=== PATIENT | male | born 1950 ===

== ENCOUNTER 2021-09-07 15:46 | Emergency (ER) | payer OTHER ==
[2021-09-07 16:37] LABS: BASOPHIL 0.9 % (0-2); EOSINOPHIL 2.7 % (0-7); HCT 46.7 % (42.0-52.0); HGB 14.7 g/dl (13.2-18.0); LYMPHOCYTE 21.5 % (15-48); MCH 27.4 pg (25.0-31.0); MCHC 31.5 g/dL (32.0-36.0); MCV 87.1 fL (78.0-100.0); MONOCYTE 7.2 % (0-12); MPV 10.3 fL (6.0-9.5); NEUTROPHIL 66.5 % (41-80); NRBC 0; PLT 217 K/uL (150-400); RBC 5.36 M/uL (4.70-6.00); RDW 14.2 % (11.5-14.0); WBC 11.2 K/uL (4.0-10.5)
[2021-09-07 18:19] LABS: CREATININE 1.03 mg/dL (0.67-1.17); POTASSIUM 5.2 mmol/L (3.5-5.1)
== END 2021-09-07 19:50 | disposition home or self-care (01) ==
LOC: FER 15:46
PROVIDERS: Emergency Medicine
DX: R19.7 Diarrhea, unspecified (principal); E87.6 Hypokalemia; I10 Essential (primary) hypertension; E11.9 Type 2 diabetes mellitus without complications; Z79.84 Long term (current) use of oral hypoglycemic drugs
CPT/HCPCS: 36415; 74022; 80048; 85025

== ENCOUNTER 2021-10-05 09:28 | Inpatient (IN) | payer OTHER ==
[~2021-10-05] VITALS: Ht 182.9 cm; Wt 89.0 kg
[2021-10-05 11:03] LABS: CORONAVIRUS 2019 SARS-COV-2 NEGATIVE (NEGATIVE); INFLUENZA A NAA NEGATIVE (NEGATIVE)
[2021-10-05 11:23] LABS: BASOPHIL 0.3 % (0-2); EOSINOPHIL 0 % (0-7); HCT 47.7 % (42.0-52.0); HGB 15.3 g/dl (13.2-18.0); LYMPHOCYTE 8.8 % (15-48); MCH 27.5 pg (25.0-31.0); MCHC 32.1 g/dL (32.0-36.0); MCV 85.8 fL (78.0-100.0); MONOCYTE 8.1 % (0-12); NEUTROPHIL 81.8 % (41-80); NRBC 0; PLT 159 K/uL (150-400); RBC 5.56 M/uL (4.70-6.00); RDW 14.4 % (11.5-14.0)
[2021-10-05 11:39] LABS: ALBUMIN 3.7 g/dL (3.4-5.0); BILIRUBIN - TOTAL 1.3 mg/dL (0.2-1.0); BUN/CREAT RATIO (CALC) 16.2 RATIO; CREATININE 0.99 mg/dL (0.67-1.17); GLOBULIN (CALCULATION) 4.7 g/dL; POTASSIUM 4.9 mmol/L (3.5-5.1); TOTAL PROTEIN 8.4 g/dL (6.4-8.2)
[2021-10-05 12:08] LABS: BILIRUBIN NEGATIVE (NEGATIVE); BLOOD TRACE-INTACT Ery/uL (NEGATIVE); CLARITY CLEAR (CLEAR); COLOR YELLOW (YELLOW); GLUCOSE (U) 1+ mg/dL (NORMAL); LEUKOCYTES TRACE Leu/uL (NEGATIVE); NITRITE POSITIVE (NEGATIVE); PROTEIN 2+ mg/dL (NEGATIVE); pH 7.5 (5.0-9.0)
[2021-10-05 12:16] LABS: BACTERIA 4+
[2021-10-05 12:22] LABS: LACTIC ACID 2.3 mmol/L (0.4-1.9)
[2021-10-05] MEDS ORDERED: ELIQUIS5 MG PO (19:33)
[2021-10-05] MEDS ORDERED: PROTONIX 40MG T40 MG PO (19:33)
[2021-10-05] MEDS ORDERED: METFORMIN HCL500 MG PO (19:34)
[2021-10-05] MEDS ORDERED: ASCORBIC ACID500 MG PO (19:34)
[2021-10-05] MEDS ORDERED: PRINIVIL20 MG PO (19:35)
[2021-10-05] MEDS ORDERED: LIPITOR20 MG PO (19:35)
[2021-10-05] MEDS ORDERED: FEOSOL325 MG PO (19:36)
[2021-10-05] MEDS ORDERED: LOPRESSOR50 MG PO (19:36)
[2021-10-06 06:50] LABS: BASOPHIL 0.2 % (0-2); EOSINOPHIL 0.3 % (0-7); HCT 43.3 % (42.0-52.0); HGB 13.8 g/dl (13.2-18.0); MCH 27.5 pg (25.0-31.0); MCHC 31.9 g/dL (32.0-36.0); MCV 86.4 fL (78.0-100.0); MONOCYTE 8.2 % (0-12); MPV 10.5 fL (6.0-9.5); NRBC 0; PLT 133 K/uL (150-400); RBC 5.01 M/uL (4.70-6.00); RDW 14.5 % (11.5-14.0)
[2021-10-06 07:29] LABS: BUN/CREAT RATIO (CALC) 13.2 RATIO; CREATININE 0.91 mg/dL (0.67-1.17); POTASSIUM 4.2 mmol/L (3.5-5.1)
[2021-10-07 06:35] LABS: BASOPHIL 0.2 % (0-2); EOSINOPHIL 0.9 % (0-7); HCT 41.6 % (42.0-52.0); HGB 13.1 g/dl (13.2-18.0); LYMPHOCYTE 11.4 % (15-48); MCH 27.3 pg (25.0-31.0); MCHC 31.5 g/dL (32.0-36.0); MCV 86.8 fL (78.0-100.0); MONOCYTE 5.8 % (0-12); MPV 10.1 fL (6.0-9.5); NEUTROPHIL 80.8 % (41-80); NRBC 0; PLT 138 K/uL (150-400); RBC 4.79 M/uL (4.70-6.00); RDW 14.6 % (11.5-14.0)
[2021-10-07] MEDS ORDERED: BACTRIM DS TAB1 EACH PO (13:36)
[2021-10-07] MEDS ORDERED: FLORANEX TABLE1 EACH PO (13:36)
== END 2021-10-07 16:31 | DRG 871 ==
LOC: FER 09:28 → FMS 12:29
PROVIDERS: Emergency Medicine; ADMIT Allergy & Immunology Allergy
DX: A41.51 Sepsis due to Escherichia coli [E. coli] (principal); G93.41 Metabolic encephalopathy; N30.00 Acute cystitis without hematuria; I48.20 Chronic atrial fibrillation, unspecified; R65.20 Severe sepsis without septic shock; E11.9 Type 2 diabetes mellitus without complications; I10 Essential (primary) hypertension; Z20.822 Contact with and (suspected) exposure to COVID-19; E78.5 Hyperlipidemia, unspecified; I25.10 Atherosclerotic heart disease of native coronary artery without angina pectoris; I45.10 Unspecified right bundle-branch block; F32.A Depression, unspecified; F41.9 Anxiety disorder, unspecified; G40.909 Epilepsy, unspecified, not intractable, without status epilepticus; Z86.73 Personal history of transient ischemic attack (TIA), and cerebral infarction without residual deficits; Z79.01 Long term (current) use of anticoagulants; Z90.49 Acquired absence of other specified parts of digestive tract; Z98.890 Other specified postprocedural states; Z79.899 Other long term (current) drug therapy
CPT/HCPCS: 36415; 71045; 80048; 80053; 81001; 83605; 84145; 85025; 87040; 87076; 87088; 87186; 93005; 97162; 97530; 97530-GP; 97535; J0696; J7040; J7120; U0002

== ENCOUNTER 2021-11-01 11:08 | Day surgery (SDCO) | payer MEDICARE ==
[~2021-11-01] VITALS: Ht 182.9 cm; Wt 90.9 kg
[~2021-11-01 11:08] MED LIST: ASCORBIC ACID500 MG PO; BACTRIM DS TAB1 EACH PO; ELIQUIS5 MG PO; FEOSOL325 MG PO; FLORANEX TABLE1 EACH PO; LIPITOR20 MG PO; LOPRESSOR50 MG PO; METFORMIN HCL500 MG PO; PRINIVIL20 MG PO; PROTONIX 40MG T40 MG PO
[2021-11-01 12:39] LABS: BILIRUBIN NEGATIVE (NEGATIVE); BLOOD 3+ Ery/uL (NEGATIVE); GLUCOSE (U) 3+ mg/dL (NORMAL); LEUKOCYTES 1+ Leu/uL (NEGATIVE); NITRITE POSITIVE (NEGATIVE); PROTEIN 2+ mg/dL (NEGATIVE); SPECIFIC GRAVITY 1.025 (1.001-1.030); pH 5.5 (5.0-9.0)
[2021-11-01 12:51] LABS: CLARITY HAZY (CLEAR); COLOR RED (YELLOW)
[2021-11-01 12:52] LABS: URINARY RBC TNTC
[2021-11-01 12:52] LABS: BASOPHIL 0.5 % (0-2); EOSINOPHIL 1.4 % (0-7); HCT 40.8 % (42.0-52.0); HGB 12.9 g/dl (13.2-18.0); MCH 27.9 pg (25.0-31.0); MCHC 31.6 g/dL (32.0-36.0); MCV 88.3 fL (78.0-100.0); MONOCYTE 8.3 % (0-12); MPV 9.6 fL (6.0-9.5); NEUTROPHIL 73.2 % (41-80); NRBC 0; PLT 143 K/uL (150-400); RBC 4.62 M/uL (4.70-6.00); RDW 14.1 % (11.5-14.0); WBC 9.6 K/uL (4.0-10.5)
[2021-11-01 13:02] LABS: INR 1.15 (0.9-1.2); PROTHROMBIN TIME 14.1 SECONDS (11.8-13.4); PTT 30.6 SECONDS (24.4-34.7)
[2021-11-01 13:11] LABS: ALBUMIN 2.9 g/dL (3.4-5.0); BILIRUBIN - TOTAL 0.3 mg/dL (0.2-1.0); BUN/CREAT RATIO (CALC) 11.9 RATIO; CREATININE 1.09 mg/dL (0.67-1.17); POTASSIUM 4.5 mmol/L (3.5-5.1); TOTAL PROTEIN 6.9 g/dL (6.4-8.2)
[2021-11-01] MEDS ORDERED: GLUCOTROL5 MG PO (18:19)
[2021-11-01] MEDS ORDERED: KEPPRA XR500 MG PO (18:24)
[2021-11-01] MEDS ORDERED: ATIVAN0.5 M1 PO (18:25)
[2021-11-01] MEDS ORDERED: SEROQUEL 25MG T25 MG PO (18:25)
[2021-11-02 06:17] LABS: BASOPHIL 0.7 % (0-2); EOSINOPHIL 1.9 % (0-7); HCT 39.5 % (42.0-52.0); HGB 12.4 g/dl (13.2-18.0); LYMPHOCYTE 19.6 % (15-48); MCH 27.6 pg (25.0-31.0); MCHC 31.4 g/dL (32.0-36.0); MONOCYTE 9.3 % (0-12); MPV 9.9 fL (6.0-9.5); NEUTROPHIL 67.6 % (41-80); NRBC 0; PLT 155 K/uL (150-400); RBC 4.49 M/uL (4.70-6.00); RDW 13.9 % (11.5-14.0); WBC 8.5 K/uL (4.0-10.5)
[2021-11-02 07:01] LABS: BUN/CREAT RATIO (CALC) 13.1 RATIO; CREATININE 0.99 mg/dL (0.67-1.17); MAGNESIUM 1.4 mg/dL (1.8-2.4); POTASSIUM 4.4 mmol/L (3.5-5.1)
--- NOTE | 2021-11-03 13:53 | NUR ---
11/03 Mr. Lopez resides at [facility]. They will be accepting him back per Zak Villarreal. [facility] is current as PCP. He has a rollator. Mr. Villarreal reports plans to make a referral to [facility] when patient returns. Mr. Villarreal reports patient to be able to negotiate [facility] and therefore, doesn't belive a referral is needed to [facility].
[2021-11-03 17:14] LABS: BILIRUBIN NEGATIVE (NEGATIVE); BLOOD TRACE-INTACT Ery/uL (NEGATIVE); CLARITY CLEAR (CLEAR); COLOR YELLOW (YELLOW); GLUCOSE (U) NORMAL (NORMAL); LEUKOCYTES TRACE Leu/uL (NEGATIVE); NITRITE NEGATIVE (NEGATIVE); PROTEIN 1+ mg/dL (NEGATIVE); SPECIFIC GRAVITY 1.025 (1.001-1.030)
[2021-11-03 17:23] LABS: BACTERIA TRACE
[2021-11-04 06:25] LABS: BASOPHIL 0.8 % (0-2); HGB 12.7 g/dl (13.2-18.0); LYMPHOCYTE 26.1 % (15-48); MCH 27.5 pg (25.0-31.0); MCV 88.9 fL (78.0-100.0); MONOCYTE 13.2 % (0-12); MPV 10.2 fL (6.0-9.5); NEUTROPHIL 55.8 % (41-80); NRBC 0; PLT 158 K/uL (150-400); RBC 4.61 M/uL (4.70-6.00); RDW 14.2 % (11.5-14.0); WBC 8.3 K/uL (4.0-10.5)
[2021-11-04 06:44] LABS: BUN/CREAT RATIO (CALC) 13.2 RATIO; CREATININE 1.06 mg/dL (0.67-1.17); MAGNESIUM 1.8 mg/dL (1.8-2.4); POTASSIUM 4.8 mmol/L (3.5-5.1)
--- NOTE | 2021-11-05 05:52 | NUR ---
PT IN ROOM SCREAMING THAT HE WANTS A FULL MEAL NO MORE OF THESE FUCKING SNACKS THAT WE HAVE BEEN GIVING HIM. THIS RN AND ANNY ESCUDERO AT BEDSIDE ATTEMPTING TO TALK TO PATIENT. PT HAS BEEN EATING ALMOST ALL THIS SHIFT. HE HAS HAD 2 SNACK BAGS, JELLO, PUDDING, AND ICE CREAM. PT CALLED KENA "FAT ASS THAT HAS BEEN SITTING ON HER ASS ALL NIGHT" HE TOLD THIS RN I HATE YOUR FUCKING GUTS HE PUT HIS FINGER IN MY FACE. EARLIER IN SHIFT PT WAS SCREAMING FOR FOOD THIS RN ATTEMPTED TO CALM DOWN. PT TOLD ME THAT HE WAS SO HUNGRY BECAUSE HE CAN;T CHEW HIS FOOD HERE. I TOLD HIM I WOULD GET A SOFT DIET ORDERED AND HE STARTED SCREAMING AT ME THAT NO ONE FUCKING CARED ABOUT HIM AT THIS HOSPITAL. HE ALSO SAID WE WERE PIECES OF SHIT. THIS RN GOT HIM A SNACK BAG AN LEFT HIM HE WOULD NOT CALM DOWN.
[2021-11-05 07:42] LABS: BASOPHIL 0.9 % (0-2); EOSINOPHIL 4.6 % (0-7); HCT 40.7 % (42.0-52.0); HGB 12.6 g/dl (13.2-18.0); LYMPHOCYTE 27.2 % (15-48); MCH 27.5 pg (25.0-31.0); MCV 88.9 fL (78.0-100.0); MONOCYTE 13.3 % (0-12); MPV 9.7 fL (6.0-9.5); NEUTROPHIL 52.5 % (41-80); NRBC 0; PLT 144 K/uL (150-400); RBC 4.58 M/uL (4.70-6.00); RDW 14.1 % (11.5-14.0); WBC 7.4 K/uL (4.0-10.5)
[2021-11-05 08:04] LABS: BUN/CREAT RATIO (CALC) 16.5 RATIO; CREATININE 1.03 mg/dL (0.67-1.17); POTASSIUM 4.6 mmol/L (3.5-5.1)
[2021-11-06 06:40] LABS: BASOPHIL 0.8 % (0-2); HCT 41.8 % (42.0-52.0); HGB 13.1 g/dl (13.2-18.0); LYMPHOCYTE 23.7 % (15-48); MCH 27.6 pg (25.0-31.0); MCHC 31.3 g/dL (32.0-36.0); MCV 88.2 fL (78.0-100.0); MONOCYTE 10.9 % (0-12); MPV 9.3 fL (6.0-9.5); NEUTROPHIL 59.4 % (41-80); NRBC 0; PLT 156 K/uL (150-400); RBC 4.74 M/uL (4.70-6.00); RDW 14.1 % (11.5-14.0); WBC 8.3 K/uL (4.0-10.5)
--- NOTE | 2021-11-06 12:06 | NUR ---
11/06/21 Mr. Lopez will be discharged to Assisted Living. will arrange for [facility] to see. Zak Villarreal, -2024, at [facility] has agreed to provide transportation.
[2021-11-06] MEDS ORDERED: SEROQUEL 25MG T25 MG PO (14:16)
[2021-11-06] MEDS ORDERED: FLOMAX0.4 MG PO (14:16)
== END 2021-11-06 15:43 | disposition home or self-care (01) ==
LOC: FER 11:08 → FMS 16:11
PROVIDERS: Emergency Medicine; Internal Medicine; Nurse Practitioner Acute Care; ADMIT Internal Medicine
DX: R31.9 Hematuria, unspecified (principal); F91.9 Conduct disorder, unspecified; I48.0 Paroxysmal atrial fibrillation; E11.9 Type 2 diabetes mellitus without complications; I10 Essential (primary) hypertension; Z20.822 Contact with and (suspected) exposure to COVID-19; Z79.01 Long term (current) use of anticoagulants
CPT/HCPCS: 36415; 80048; 80053; 81001; 83036; 83605; 83735; 84145; 85025; 85610; 85730; 87088; 94010; G0378; J0696; J1335; J2060; J3475; J3486; U0002

== ENCOUNTER 2022-01-13 10:29 | Emergency (ER) | payer OTHER ==
[~2022-01-13 10:29] MED LIST changes: +ATIVAN0.5 M1 PO; +FLOMAX0.4 MG PO; +GLUCOTROL5 MG PO; +KEPPRA XR500 MG PO; +SEROQUEL 25MG T25 MG PO
== END 2022-01-13 14:31 | disposition home or self-care (01) ==
LOC: FER 10:29
DX: S01.01XA Laceration without foreign body of scalp, initial encounter (principal); E11.9 Type 2 diabetes mellitus without complications; I10 Essential (primary) hypertension; W19.XXXA Unspecified fall, initial encounter; Y92.009 Unspecified place in unspecified non-institutional (private) residence as the place of occurrence of the external cause
CPT/HCPCS: 70450; 72125

== ENCOUNTER 2022-01-14 17:09 | Emergency (ER) | payer MEDICARE ==
[2022-01-14 17:52] LABS: BASOPHIL 0.4 % (0-2); EOSINOPHIL 2.6 % (0-7); HCT 42.1 % (42.0-52.0); HGB 13.5 g/dl (13.2-18.0); LYMPHOCYTE 27.3 % (15-48); MCH 28.2 pg (25.0-31.0); MCHC 32.1 g/dL (32.0-36.0); MCV 87.9 fL (78.0-100.0); MONOCYTE 10.1 % (0-12); MPV 9.7 fL (6.0-9.5); NEUTROPHIL 59.1 % (41-80); NRBC 0; PLT 140 K/uL (150-400); RBC 4.79 M/uL (4.70-6.00); RDW 14.2 % (11.5-14.0); WBC 8.4 K/uL (4.0-10.5)
[2022-01-14 18:12] LABS: ALBUMIN 3.2 g/dL (3.4-5.0); BILIRUBIN - TOTAL 0.6 mg/dL (0.2-1.0); BUN/CREAT RATIO (CALC) 10.6 RATIO; CREATININE 1.04 mg/dL (0.67-1.17); GLOBULIN (CALCULATION) 4.4 g/dL; POTASSIUM 4.3 mmol/L (3.5-5.1); TOTAL PROTEIN 7.6 g/dL (6.4-8.2)
[2022-01-14 18:16] LABS: INR 1.24 (0.9-1.2); PROTHROMBIN TIME 15.2 SECONDS (11.9-13.9); PTT 32.3 SECONDS (24.9-34.6)
== END 2022-01-15 01:00 | disposition home or self-care (01) ==
LOC: FER 17:09
PROVIDERS: Emergency Medicine
DX: R07.89 Other chest pain (principal); I10 Essential (primary) hypertension; E11.9 Type 2 diabetes mellitus without complications; I48.91 Unspecified atrial fibrillation; K21.9 Gastro-esophageal reflux disease without esophagitis; Z20.822 Contact with and (suspected) exposure to COVID-19; Z79.01 Long term (current) use of anticoagulants; Z79.84 Long term (current) use of oral hypoglycemic drugs; Z79.899 Other long term (current) drug therapy
CPT/HCPCS: 36415; 70450; 71045; 80053; 84484; 85025; 85610; 85730; 93005; U0002